=== PATIENT | male | born 1960 | race Caucasian/White ===

== ENCOUNTER 2017-01-10 18:00 | Emergency (ER) | payer OTHER, BC ==
[2017-01-10] MEDS ORDERED: HYDROMORPHONE HCL 2 MG/ML SOL IV ONE (18:17)
[2017-01-10] MEDS ORDERED: HYDROMORPHONE 1 MG/ML SYRINGE IV ONE ×3 (18:19→19:34)
[2017-01-10] MEDS ORDERED: HYDROMORPHONE 1 MG/ML SYRINGE ONE ×3 (18:19→19:35)
[2017-01-10 18:28] LABS: BASOPHILS % (AUTO) 1 % (0-3); EOSINOPHILS % (AUTO) 1 % (0-9); HEMATOCRIT 41 % (39-53); MEAN CORPUSCULAR HGB CONC 34.5 gm/dl (32.0-36.0); MEAN CORPUSCULAR VOLUME 86 fL (80-100); MONOCYTES % (AUTO) 7.7 % (0-12); NEUTROPHILS % (AUTO) 61.2 % (37-80)
[2017-01-10 18:40] LABS: ALBUMIN 3.3 gm/dl (3.4-5.0); CALCIUM 8.2 mg/dl (8.5-10.1); POTASSIUM 3.8 mMol/L (3.5-5.1)
[2017-01-10] MEDS ORDERED: AMPICILLIN 1 GM PDS ONE (19:04)
[2017-01-10] MEDS ORDERED: AMPICILLIN 1 GM PDS 1 GM in SODIUM CHLORIDE 0.9% 100 ML 100 ML IV SCH (19:15)
[2017-01-10 19:19] VITALS: TEMP 98.7
[2017-01-10] MEDS ORDERED: SODIUM CHLORIDE 0.9% FLUSH 10 ML SOL IV PRN (19:37)
[2017-01-10 19:55] VITALS: BP 162/102; PULSE 74; RESP 74; O2SAT 93
== END 2017-01-10 19:47 | disposition short-term general hospital (02) | DRG 563 ==
LOC: ED 18:00
DX: S82.202B Unspecified fracture of shaft of left tibia, initial encounter for open fracture type I or II (principal); S82.402B Unspecified fracture of shaft of left fibula, initial encounter for open fracture type I or II; V20.4XXA Motorcycle driver injured in collision with pedestrian or animal in traffic accident, initial encounter
CPT/HCPCS: 36415; 73590; 80053; 85025; 96365; 96374; 99284; 99285; G0390; J0290; A6402; J1170